=== PATIENT | female | born 1960 ===

== ENCOUNTER 2017-12-05 13:43 | Emergency (ER) | payer MEDICARE, MEDICAID ==
--- NOTE | 2017-12-05 14:05 | ED PDOC ---
Arrival/HPI - General Time Seen by Provider: 12/05/17 14:05 Historian: Patient - History of Present Illness Narrative History of Present Illness (Text): 12/05/17 14:26 56yo female with PMHx of Lupus bib EMS for complaint of weakness and dizziness. Patient states she suddenly felt weak, mostly on her legs after walking with sweater and winter jacket under the sun for some miles. States she didn't know is hot outside when she left her house. States when she tried to stand up after for resting for few minutes, she felt dizzy. States she didn't eat today. Notes that the weakness and dizziness have resolved and she feels much better. She denies any focal weakness, chest pain, slurred speech, dysathria, headache, nausea, vomiting, diaphoresis, calf pain, LE edema, abdominal pain, any other complaint. Past Medical History - Provider Review Nursing Documentation Reviewed: Yes Family/Social History - Physician Review Nursing Documentation Reviewed: Yes Family/Social History: Unknown Family HX Allergies/Home Meds Allergies/Adverse Reactions: Allergies No Known Allergies Allergy (Verified 12/05/17 14:16) Review of Systems - Physician Review All systems were reviewed & negative as marked: Yes - Review of Systems Constitutional: Normal Eyes: Normal ENT: Normal Respiratory: Normal Cardiovascular: Normal Gastrointestinal: Normal Genitourinary Female: Normal Musculoskeletal: Normal Skin: Normal Neurological: Dizziness, Focal Weakness (Legs). absent: Headache, Speech Changes, Facial Droop Endocrine: Normal Hemo/Lymphatic: Normal Psychiatric: Normal Physical Exam Vital Signs Reviewed: Yes Vital Signs Temp Pulse Resp BP Pulse Ox 12/05/17 16:00 82 16 111/80 99 12/05/17 14:05 98 F 88 18 88/56 L 99 Temperature: Afebrile Blood Pressure: Hypotensive Pulse: Regular Respiratory Rate: Normal Appearance: Positive for: Well-Appearing, Non-Toxic, Comfortable Pain Distress: None Mental Status: Positive for: Alert and Oriented X 3 - Systems Exam Head: Present: Atraumatic, Normocephalic Pupils: Present: PERRL Extroacular Muscles: Present: EOMI Conjunctiva: Present: Normal Mouth: Present: Moist Mucous Membranes Neck: Present: Normal Range of Motion Respiratory/Chest: Present: Clear to Auscultation, Good Air Exchange. No: Respiratory Distress, Accessory Muscle Use Cardiovascular: Present: Regular Rate and Rhythm, Normal S1, S2. No: Murmurs Abdomen: No: Tenderness, Distention, Peritoneal Signs Back: Present: Normal Inspection Upper Extremity: Present: Normal Inspection. No: Cyanosis, Edema Lower Extremity: Present: Normal Inspection. No: Edema Neurological: Present: GCS=15, CN II-XII Intact, Speech Normal, Motor Func Grossly Intact, Normal Sensory Function, Normal Cerebellar Funct, Norm Deep Tendon Reflexes, Gait Normal, Memory Normal, Normal 2Pt Descrimination, Other ( No focal neurological deficit) Skin: Present: Warm, Dry, Normal Color. No: Rashes Psychiatric: Present: Alert, Oriented x 3, Normal Insight, Normal Concentration Medical Decision Making ED Course and Treatment: 12/05/17 17:22 56yo female present with b/l lower leg weakness and dizziness s/p walking on the heat Pt was comfortable in ED. she was hypotensive on arrival, but her BP improved sp 1L of NS. She asked for food and was fed in ED. She was ambulatory in ED with her baseline gait and neurologically intact. She notes that her symptoms resolved in ED. Thinks she had the symptoms secondary to the heat and was also wearing winter jacket and sweater. Her lab was unremarkable. She have UTI and was treated with keflex, although she was asymptomatic, but she will be treated secondary to her dizziness. She was advised to f/u with her PMD. TRT ED for any new or worsening symptoms Head CT - Negative EKG NSR @93bpm - Lab Interpretations Lab Results: 12/05/17 14:52 12/05/17 14:52 Lab Results 12/05/17 16:01: Urine Color Yellow, Urine Appearance Sl cloudy, Urine pH 6.0, Ur Specific [place] >= 1.030, Urine Protein 30 H, Urine Glucose (UA) Negative, Urine Ketones Trace H, Urine Blood Negative, Urine Nitrate Negative, Urine Bilirubin Negative, Urine Urobilinogen 0.2, Ur Leukocyte Esterase Small H, Urine RBC 0 - 2, Urine WBC 2 - 5, Ur Epithelial Cells 0 - 2, Urine Bacteria Few 12/05/17 14:52: Sodium 144, Potassium 4.2, Chloride 101, Carbon Dioxide 28, Anion Gap 19, BUN 23 H, Creatinine 1.2, Est GFR ( Amer) 57, Est GFR (Non- Af Amer) 47, Random Glucose 99, Calcium 10.0, Phosphorus 4.5, Magnesium 2.1, Total Bilirubin 1.4 H, AST 39 H, ALT 22, Alkaline Phosphatase 89, Lactate Dehydrogenase 606, Total Creatine Kinase 224, Troponin I < 0.01, Total Protein 8.7 H, Albumin 5.1 H, Globulin 3.6, Albumin/Globulin Ratio 1.4 12/05/17 14:52: PT 12.7 H, INR 1.11 H, APTT 24.8 L 12/05/17 14:52: WBC 7.7, RBC 4.30, Hgb 13.2, Hct 37.9, MCV 88.1, MCH 30.7, MCHC 34.8, RDW 13.2, Plt Count 304, MPV 8.2, Gran % 78.1 H, Lymph % (Auto) 10.5 L, [place] % (Auto) 8.5 H, Eos % (Auto) 2.6, Baso % (Auto) 0.3, Gran # 6.04, Lymph # ( Auto) 0.8 L, [place] # (Auto) 0.7 H, Eos # (Auto) 0.2, Baso # (Auto) 0.02 12/05/17 13:58: POC Glucose (mg/dL) 134 H - RAD Interpretation Radiology Orders: 12/05/17 15:49 HEAD W/O CONTRAST [CT] Stat - Medication Orders Current Medication Orders: Discontinued Medications Cephalexin Monohydrate (Keflex) 500 mg PO STAT STA PRN Reason: Protocol Stop: 12/05/17 16:33 Sodium Chloride (Sodium Chloride 0.9%) 1,000 mls @ 999 mls/hr IV .Q1H1M STA Stop: 12/05/17 15:17 Last Admin: 12/05/17 14:30 Dose: 999 mls/hr eMAR Start Stop Document 12/05/17 14:30 JUAN (Rec: 12/05/17 15:28 JUAN [id number]) Intravenous Solution Start Date 12/05/17 Start Time 14:30 End Date 12/05/17 End time 15:30 Total Infusion Time 60 Disposition/Present on Arrival - Present on Arrival Any Indicators Present on Arrival: No History of DVT/PE: No History of Uncontrolled Diabetes: No Urinary Catheter: No History of Decub. Ulcer: No History Surgical Site Infection Following: None - Disposition Have Diagnosis and Disposition been Completed?: Yes Diagnosis: Dizziness, UTI (urinary tract infection) Disposition Time: 17:15 Patient Plan: Discharge Patient Problems: Current Active Problems Problem Status Onset Dizziness Acute UTI (urinary tract infection) Acute Condition: STABLE Discharge Instructions (ExitCare): Urinary Tract Infections in Adults, Urinary Tract Infection, Adult (DC) Additional Instructions: Follow up with your doctor Drink plenty of fluid Return to ED for any new or worsening symptoms Prescriptions: Cephalexin [Keflex] 500 mg PO QID #28 capsule Referrals: [facility] [place] [Outside] - Follow up with primary
[2017-12-05] MEDS ORDERED: Sodium Chloride 0.9% 1,000 ML IV STA (14:17)
[2017-12-05 15:18] LABS: ALB/GLOB RATIO 1.4 (1.1-1.8); ALBUMIN 5.1 g/dL (3.0-4.8); ALT/SGPT 22 U/L (7-56); AST/SGOT 39 U/L (14-36); BLOOD UREA NITROGEN 23 mg/dL (7-21); GFR AFRICAN-AMERICAN 57; GFR NON-AFRICAN AMERICAN 47
[2017-12-05 15:19] LABS: BASO # 0.02 K/mm3 (0.0-2.0); BASO % 0.3 % (0.0-3.0); EOS # 0.2 (0.0-0.7); EOS % 2.6 % (1.5-5.0); GRAN # 6.04 (1.4-6.5); GRAN % 78.1 % (50.0-68.0); HEMOGLOBIN 13.2 g/dL (12.0-16.0); LYMPH # 0.8 (1.2-3.4); LYMPH % 10.5 % (22.0-35.0); MEAN CELL VOLUME 88.1 fl (80.0-105.0); MEAN CORPUSCULAR HEMOGLOBIN 30.7 pg (25.0-35.0); MEAN CORPUSCULAR HGB CONC 34.8 g/dl (31.0-37.0); MEAN PLATELET VOLUME 8.2 fl (7.0-11.0); MONO # 0.7 (0.1-0.6); MONO % 8.5 % (1.0-6.0); RBC 4.3 10^6/uL (3.5-6.1); RED CELL DISTRIBUTION WIDTH 13.2 % (11.5-14.5); WHITE BLOOD COUNT 7.7 10^3/ul (4.5-11.0)
[2017-12-05 15:22] LABS: INR 1.11 (0.93-1.08); PARTIAL THROMBOPLASTIN TIME 24.8 Seconds (25.1-36.5); PROTHROMBIN TIME 12.7 SECONDS (9.4-12.5)
[2017-12-05 15:28] LABS: TROPONIN I < 0.01 ng/mL
[2017-12-05 16:05] LABS: URINE APPEARANCE SL CLOUDY (CLEAR); URINE BILIRUBIN NEGATIVE (NEGATIVE); URINE BLOOD NEGATIVE (NEGATIVE); URINE COLOR YELLOW (YELLOW); URINE GLUCOSE (UA) NEGATIVE (NEGATIVE); URINE LEUKOCYTE ESTERASE SMALL Leu/uL (NEGATIVE); URINE PROTEIN 30 mg/dL (<30 mg/dL); URINE UROBILINOGEN 0.2 E.U./dL (<1 E.U./dL)
[2017-12-05 16:16] LABS: URINE BACTERIA FEW (NEG); URINE EPITHELIAL CELLS 0 - 2 /hpf (0-5); URINE RBC 0 - 2 /hpf (0-2)
[2017-12-05 17:00] VITALS: TEMP 98; O2SAT 99
--- NOTE | 2017-12-05 17:10 | CT ---
PROCEDURE: CT HEAD WITHOUT CONTRAST. HISTORY: focal weakness COMPARISON: None available. TECHNIQUE: Axial computed tomography images were obtained through the head/brain without intravenous contrast. Radiation dose: Total exam DLP = 1549.27 MGy-cm. This CT exam was performed using one or more of the following dose reduction techniques: Automated exposure control, adjustment of the mA and/or kV according to patient size, and/or use of iterative reconstruction technique. FINDINGS: HEMORRHAGE: No intracranial hemorrhage. BRAIN: No mass effect or edema. No atrophy or chronic microvascular ischemic changes. VENTRICLES: Unremarkable. No hydrocephalus. CALVARIUM: Unremarkable. PARANASAL SINUSES: Unremarkable as visualized. No significant inflammatory changes. MASTOID AIR CELLS: Unremarkable as visualized. No inflammatory changes. OTHER FINDINGS: None. IMPRESSION: No acute intracranial abnormalities. No significant findings to account for the clinical presentation.
[2017-12-05 18:32] VITALS: BP 103/74; PULSE 74; RESP 8
--- NOTE | 2017-12-05 22:19 | CARD ---
APPROVED REPORT EKG Measurement Heart [id number] <Conclusion> Normal sinus rhythm Normal ECG
== END 2017-12-05 18:36 | disposition home or self-care (01) ==
LOC: MERGE 13:43 → ED 13:43
DX: N39.0 Urinary tract infection, site not specified (principal); R42 Dizziness and giddiness; M32.9 Systemic lupus erythematosus, unspecified
CPT/HCPCS: 70450; 80053; 81001; 82550; 82948; 83615; 83735; 84100; 84484; 85025; 85610; 85730; 87086; 93005; 96360; 99285; J7040

== ENCOUNTER 2018-02-07 10:57 | Emergency (ER) | payer MEDICARE, MEDICAID ==
[2018-02-07 10:58] VITALS: BMI 25.6
[2018-02-07 11:14] VITALS: TEMP 98.5; O2SAT 99
--- NOTE | 2018-02-07 11:40 | ED PDOC ---
Arrival/HPI - General Chief Complaint: Chest Pain Time Seen by Provider: 02/07/18 11:25 Historian: Patient - History of Present Illness Narrative History of Present Illness (Text): 02/07/18 11:37 57 year old female, whose past medical history includes lupus and arthritis, who presents to the emergency department complaining of chest pain s/p fall 4 days ago. Patient notes it was really hot in her house, she felt dizzy and fell forward onto counter corner. Patient notes pain as consistent but not worsening. Patient denies any fever, chills, shortness of breath, nausea, vomiting, diarrhea, back pain, neck pain, headache, dizziness, or any other complaints. PMD: Dr. Pierre Time/Duration: < week (4 days) Symptom Onset: Sudden Symptom Course: Unchanged Activities at Onset: Light Context: Home Past Medical History - Provider Review Nursing Documentation Reviewed: Yes - Infectious Disease Hx of Infectious Diseases: None - Reproductive Menopause: Yes - Cardiac Hx Angina: No - Pulmonary Hx Respiratory Disorders: No - Neurological Hx Neurological Disorder: No - HEENT Hx HEENT Disorder: Yes Other/Comment: PT. FOR THYROID BIOPSY 09/21/15-DX: MULTINODULAR GOITER. - Renal Hx Renal Disorder: No - Endocrine/Metabolic Hx Endocrine Disorders: Yes Hx Systemic Lupus Erythematosus: Yes - Hematological/Oncological Hx Blood Disorders: Yes Hx Cancer: Yes ("SURGERY FOR RIGHT HIP CARCINOMA") - Musculoskeletal/Rheumatological Hx Musculoskeletal Disorders: Yes Hx Arthritis: Yes - Gastrointestinal Hx Gastrointestinal Disorders: No - Genitourinary/Gynecological Hx Genitourinary Disorders: No - Psychiatric Hx Psychophysiologic Disorder: Yes Hx Depression: Yes Hx Substance Use: No - Surgical History Hx Section: Yes Hx Cholecystectomy: Yes Hx Orthopedic Surgery: Yes Other/Comment: HIP R/T CA, THYROID NODULE, NECK - Anesthesia Hx Anesthesia: Yes Hx Anesthesia Reactions: No Family/Social History - Physician Review Nursing Documentation Reviewed: Yes Family/Social History: Unknown Family HX Smoking Status: Never Smoked Hx Alcohol Use: No Hx Substance Use: No Allergies/Home Meds Allergies/Adverse Reactions: Allergies No Known Allergies Allergy (Verified 02/07/18 11:03) Home Medications: Home Meds Medication Instructions Recorded Confirmed Amoxicillin [Amoxil 500 mg Cap] 500 mg PO BID 02/07/18 02/07/18 Review of Systems - Physician Review All systems were reviewed & negative as marked: Yes - Review of Systems Constitutional: Normal Eyes: Normal ENT: Normal Respiratory: Normal. absent: SOB, Cough Cardiovascular: Chest Pain Gastrointestinal: Normal. absent: Abdominal Pain, Diarrhea, Nausea, Vomiting Genitourinary Female: Normal. absent: Dysuria, Frequency Musculoskeletal: Normal. absent: Back Pain, Neck Pain Skin: Normal. absent: Rash Neurological: Normal. absent: Headache, Dizziness Endocrine: Normal Hemo/Lymphatic: Normal Psychiatric: Normal Physical Exam Vital Signs Reviewed: Yes Vital Signs Temp Pulse Resp BP Pulse Ox 02/07/18 14:29 76 17 105/70 99 02/07/18 14:16 78 18 104/68 99 02/07/18 11:05 98.5 F 80 16 99/65 L 99 Temperature: Afebrile Blood Pressure: Hypotensive Pulse: Regular Respiratory Rate: Normal Appearance: Positive for: Well-Appearing, Non-Toxic, Comfortable Pain Distress: None Mental Status: Positive for: Alert and Oriented X 3 - Systems Exam Head: Present: Atraumatic, Normocephalic Pupils: Present: PERRL Extroacular Muscles: Present: EOMI Conjunctiva: Present: Normal Mouth: Present: Moist Mucous Membranes Neck: Present: Normal Range of Motion. No: Meningeal Signs, MIDLINE TENDERNESS , Paraspinal Tenderness Respiratory/Chest: Present: Clear to Auscultation, Good Air Exchange, Other ( midsternal and interior chest wall tenderness). No: Respiratory Distress, Accessory Muscle Use Cardiovascular: Present: Regular Rate and Rhythm, Normal S1, S2. No: Murmurs Abdomen: No: Tenderness, Distention, Peritoneal Signs Back: Present: Normal Inspection. No: CVA Tenderness, Midline Tenderness, Paraspinal Tenderness Upper Extremity: Present: Normal Inspection. No: Cyanosis, Edema Lower Extremity: Present: Normal Inspection. No: Edema, CALF TENDERNESS Neurological: Present: GCS=15, CN II-XII Intact, Speech Normal Skin: Present: Warm, Dry, Normal Color. No: Rashes Psychiatric: Present: Alert, Oriented x 3, Normal Insight, Normal Concentration Medical Decision Making ED Course and Treatment: 02/07/18 11:42 Impression: 57 year old female presents to the emergency department complaining of chest pain s/p fall 4 days ago. Differential Diagnosis included but are not limited to: R/o fracture vs. r/o dissection Plan: -- CT angio -- EKG -- Labs -- Bolus -- Ultram -- Reassess and disposition Progress Notes: EKG reviewed, shows NSR at 74 bpm. Accession No. : [id number] Patient Name / ID : VANNESSA HUSAIN / [id number] PROCEDURE: CT Angiography Chest, Abdomen and Pelvis with and without intravenous contrast IMPRESSION: No evidence of thoracic or abdominal aortic dissection or aneurysmal dilatation. No other acute findings. Patient improved with tramadol. CT reviewed and negative. Troponin negative. Patient was able to stand up with no lightheadedness or dizziness. She will make sure to followup with her PMD in 1-2 days. She was advised to return to the ED if symptoms worsen or any other concern. - Lab Interpretations Lab Results: 02/07/18 11:50 02/07/18 11:50 Lab Results 02/07/18 11:50: Sodium 145, Potassium 3.2 L, Chloride 104, Carbon Dioxide 31, Anion Gap 13, BUN 13, Creatinine 0.5 L, Est GFR ( Amer) > 60, Est GFR ( Non-Af Amer) > 60, Random Glucose 87, Calcium 8.4, Lactate Dehydrogenase 408, Total Creatine Kinase 83, Troponin I < 0.01 02/07/18 11:50: WBC 2.8 L* D, RBC 3.61, Hgb 11.0 L D, Hct 32.0 L, MCV 88.6, MCH 30.5, MCHC 34.4, RDW 13.4, Plt Count 207, MPV 8.2, Gran % 52.4, Lymph % (Auto) 34.5, [place] % (Auto) 9.1 H, Eos % (Auto) 3.6, Baso % (Auto) 0.4, Gran # 1.44, Lymph # (Auto) 1.0 L, [place] # (Auto) 0.3, Eos # (Auto) 0.1, Baso # (Auto) 0.01 - RAD Interpretation Radiology Orders: 02/07/18 11:42 ANGIOGRAPHY DISECTION PROTOCOL [CT] Stat - Medication Orders Current Medication Orders: Discontinued Medications Sodium Chloride (Sodium Chloride 0.9%) 1,000 mls @ 999 mls/hr IV .Q1H1M STA Stop: 02/07/18 12:43 Last Admin: 02/07/18 11:55 Dose: 999 mls/hr eMAR Start Stop Document 02/07/18 11:55 SF (Rec: 02/07/18 11:55 SF [id number]) Intravenous Solution Start Date 02/07/18 Start Time 11:55 End Date 02/07/18 End time 12:56 Total Infusion Time 61 Potassium Chloride (K-Dur 20 Meq Er Tab) 40 meq PO STAT STA Stop: 02/07/18 12:41 Last Admin: 02/07/18 14:25 Dose: 40 meq Tramadol HCl (Ultram) 50 mg PO STAT STA Stop: 02/07/18 11:37 Last Admin: 02/07/18 11:53 Dose: 50 mg MAR Pain Assessment Document 02/07/18 11:53 SF (Rec: 02/07/18 11:53 SF [id number]) Pain Reassessment Is this a pain reassessment? Yes Sleep Is patient sleeping during reassessment? No Presence of Pain Presence of Pain Yes - Scribe Statement The provider has reviewed the documentation as recorded by the Benibchayo Posada All medical record entries made by the Scribchayo were at my direction and personally dictated by me. I have reviewed the chart and agree that the record accurately reflects my personal performance of the history, physical exam, medical decision making, and the department course for this patient. I have also personally directed, reviewed, and agree with the discharge instructions and disposition. Disposition/Present on Arrival - Present on Arrival Any Indicators Present on Arrival: No History of DVT/PE: No History of Uncontrolled Diabetes: No Urinary Catheter: No History of Decub. Ulcer: No History Surgical Site Infection Following: None - Disposition Have Diagnosis and Disposition been Completed?: Yes Diagnosis: Chest pain, Chest wall contusion Disposition: HOME/ ROUTINE Disposition Time: 14:29 Patient Plan: Discharge Condition: IMPROVED Discharge Instructions (ExitCare): Chest Pain (ED) Additional Instructions: LISHA HUDR, thank you for letting us take care of you today. Your provider was Nando Jacob DO and you were treated for CHEST WALL CONTUSION. The emergency medical care you received today was directed at your acute symptoms. If you were prescribed any medication, please fill it and take as directed. It may take several days for your symptoms to resolve. Return to the Emergency Department if your symptoms worsen, do not improve, or if you have any other problems. Please contact your doctor or call one of the physicians/clinics you have been referred to that are listed on the Patient Visit Information form that is included in your discharge packet. Bring any paperwork you were given at discharge with you along with any medications you are taking to your follow up visit. Our treatment cannot replace ongoing medical care by a primary care provider outside of the emergency department. Thank you for allowing the [facility] team to be part of your care today. If you had an X-Ray or CT scan: A Radiologist will review the ED reading if any change in treatment is needed we will contact you. If you had a blood, urine, or wound culture: It will take several days for the results, if any change in treatment is needed we will contact you. If you had an STI test: It will take 48 hours for the results. Please call after 1 week if you have not heard back. Prescriptions: traMADol [Ultram] 50 mg PO Q6H PRN #20 tab PRN Reason: Pain, Moderate (4-7) Referrals: Caprice Pierre MD [Primary Care Provider] - Follow up with primary Forms: [employer] (Frisian)
[2018-02-07] MEDS ORDERED: Sodium Chloride 0.9% 1,000 ML IV STA (11:43)
[2018-02-07 12:22] LABS: BASO # 0.01 K/mm3 (0.0-2.0); BASO % 0.4 % (0.0-3.0); EOS # 0.1 (0.0-0.7); EOS % 3.6 % (1.5-5.0); GRAN # 1.44 (1.4-6.5); GRAN % 52.4 % (50.0-68.0); LYMPH % 34.5 % (22.0-35.0); MEAN CELL VOLUME 88.6 fl (80.0-105.0); MEAN CORPUSCULAR HEMOGLOBIN 30.5 pg (25.0-35.0); MEAN CORPUSCULAR HGB CONC 34.4 g/dl (31.0-37.0); MEAN PLATELET VOLUME 8.2 fl (7.0-11.0); MONO # 0.3 (0.1-0.6); MONO % 9.1 % (1.0-6.0); RBC 3.61 10^6/uL (3.5-6.1); RED CELL DISTRIBUTION WIDTH 13.4 % (11.5-14.5)
[2018-02-07 12:29] LABS: BLOOD UREA NITROGEN 13 mg/dL (7-21); CALCIUM 8.4 mg/dL (8.4-10.5); GFR AFRICAN-AMERICAN > 60; GFR NON-AFRICAN AMERICAN > 60
[2018-02-07 12:40] LABS: TROPONIN I < 0.01 ng/mL
[2018-02-07] MEDS ORDERED: Potassium Chloride 20 mEq ER Tab PO STA (12:40)
[2018-02-07 12:41] LABS: WHITE BLOOD COUNT 2.8 10^3/ul (4.5-11.0)
--- NOTE | 2018-02-07 13:44 | CT ---
PROCEDURE: CT Angiography Chest, Abdomen and Pelvis with and without intravenous contrast HISTORY: chest trauma r/o fx r/o disection COMPARISON: None. TECHNIQUE: Contiguous axial images of the chest, abdomen and pelvis were obtained in the phase of aortic enhancement. A noncontrast enhanced CT of the chest was also obtained to evaluate for possible intramural thrombus. Coronal and sagittal reformats were generated. IV dose administered: 150 mL Omnipaque 350 Radiation dose: Total exam DLP = 716.35 mGy-cm. This CT exam was performed using one or more of the following dose reduction techniques: Automated exposure control, adjustment of the mA and/or kV according to patient size, and/or use of iterative reconstruction technique. FINDINGS: CT ANGIOGRAPHY OF THE CHEST WITH & WITHOUT CONTRAST: AORTA (CHEST AND ABDOMEN): The thoracic and abdominal aorta are unremarkable, without aneurysm, dissection or rupture. No intramural thrombus identified in the thoracic aorta on the non-contrast ct of the chest. The celiac axis, superior mesenteric artery, inferior mesenteric artery and the renal arteries are widely patent. The pelvic arteries are unremarkable. LUNGS: Clear. No nodule, mass or consolidation. MEDIASTINUM: Unremarkable. Normal caliber aorta and pulmonary arterial trunk. No aortic dissection. Normal size heart. LYMPH NODES: Unremarkable. PLEURA: Unremarkable. No pneumothorax. No pleural fluid. BONES: Mild thoracic dextroscoliosis. No osseous fracture. No rib fracture identified. OTHER FINDINGS: None. CT ANGIOGRAPHY OF THE ABDOMEN AND PELVIS WITH CONTRAST: LIVER: Unremarkable. No gross lesion or ductal dilatation. GALLBLADDER AND BILE DUCTS: Status post cholecystectomy PANCREAS: Unremarkable. No gross lesion or ductal dilatation. SPLEEN: Unremarkable. ADRENALS: Unremarkable. No mass. KIDNEYS AND URETERS: Unremarkable. No hydronephrosis. No solid mass. VASCULATURE: Unremarkable. No aortic aneurysm. STOMACH AND BOWEL: Unremarkable. No obstruction. No gross mural thickening. APPENDIX: Not identified. No secondary findings to suggest acute appendicitis. PERITONEUM: Unremarkable. No free fluid. No free air. LYMPH NODES: Unremarkable. No enlarged lymph nodes. BLADDER: Unremarkable. REPRODUCTIVE: Unremarkable uterus BONES: No acute fracture. Posterior fixation L3-4 with pedicle screws and rods. OTHER FINDINGS: None. IMPRESSION: No evidence of thoracic or abdominal aortic dissection or aneurysmal dilatation. No other acute findings.
[2018-02-07 14:30] VITALS: BP 105/70; PULSE 76; RESP 17
--- NOTE | 2018-02-08 09:03 | CARD ---
APPROVED REPORT EKG Measurement Heart [id number] <Conclusion> Normal sinus rhythm Q in lll Normal ECG No change
== END 2018-02-07 14:29 | disposition home or self-care (01) ==
LOC: ED 10:57
DX: S20.219A Contusion of unspecified front wall of thorax, initial encounter (principal); W19.XXXA Unspecified fall, initial encounter; R07.9 Chest pain, unspecified; M32.9 Systemic lupus erythematosus, unspecified
CPT/HCPCS: 71275; 74175; 80048; 82550; 83615; 84484; 85025; 93005; 96360; 99284; J7030; Q9967